=== PATIENT | male | born 2000 | race Caucasian/White ===

== ENCOUNTER 2019-11-12 21:17 | Inpatient (IN) | payer OTHER ==
--- NOTE | 2019-11-12 21:40 | ED ---
General Adult HPI - General Chief complaint: Psychiatric Symptoms Stated complaint: Mental Health Time Seen by Provider: 11/12/19 21:32 Source: patient Mode of arrival: ambulatory Limitations: no limitations - History of Present Illness Initial comments: Dictation was produced using [employer] dictation software. please excuse any grammatical, word or spelling errors. This patient was cared for during a federal and state declared state of emergency secondary to Covid 19 Chief Complaint: 19-year-old male presents with suicidal behavior History of Present Illness: 19-year-old male he presents today with suicidal behavior. Patient's been depressed for several weeks now. Patient cut himself superficially multiple occasions. Today he held a shotgun to his head however did not pull the trigger. Patient denies any homicidal ideation. Denies any visual or auditory hallucinations. The ROS documented in this emergency department record has been reviewed and confirmed by me. Those systems with pertinent positive or negative responses have been documented in the HPI. All other systems are other negative and/or noncontributory. PHYSICAL EXAM: General Impression: Alert and oriented x3, not in acute distress HEENT: Normocephalic atraumatic, extra-ocular movements intact, pupils equal and reactive to light bilaterally, mucous membranes moist. Cardiovascular: Heart regular rate and rhythm Chest: Able to complete full sentences, no retractions, no tachypnea Abdomen: abdomen soft, non-tender, non-distended, no organomegaly Musculoskeletal: Pulses present and equal in all extremities, no peripheral edema Motor: no focal deficits noted Neurological: CN II-XII grossly intact, no focal motor or sensory deficits noted Skin: Intact with no visualized rashes Psych: Anxious ED course: 19-year-old male presents with suicidal behavior. Signs upon arrival are within acceptable limits. Patient is a medical complaints. Physical examination is benign. Patient cleared For EPS evaluation. Patient evaluated by EPS. Patient be admitted to inpatient psychiatry. - Related Data Home Medications Medication Instructions Recorded Confirmed No Known Home Medications 11/12/19 11/12/19 Allergies Allergy/AdvReac Type Severity Reaction Status Date / Time No Known Allergies Allergy Verified 11/12/19 22:57 Review of Systems ROS Statement: Those systems with pertinent positive or pertinent negative responses have been documented in the HPI. ROS Other: All systems not noted in ROS Statement are negative. Past Medical History Past Medical History: No Reported History History of Any Multi-Drug Resistant Organisms: None Reported Past Surgical History: No Surgical Hx Reported Past Psychological History: Depression Smoking Status: Current every day smoker Past Alcohol Use History: Occasional Past Drug Use History: Marijuana General Exam Limitations: no limitations Course Vital Signs 11/12/19 21:17 Temperature 98.7 F Pulse Rate 96 Respiratory 16 Rate Blood Pressure 127/86 O2 Sat by Pulse 98 Oximetry Medical Decision Making - Lab Data Lab Results 11/12/19 Range/Units 21:40 Urine Color Zoe Urine Appearance Slightly Cloudy (Clear) Urine pH 6.0 (5.0-8.0) Ur Specific [place] 1.020 (1.001-1.035) Urine Protein Negative (Negative) Urine Glucose (UA) Negative (Negative) Urine Ketones Negative (Negative) Urine Blood Negative (Negative) Urine Nitrite Negative (Negative) Urine Bilirubin Negative (Negative) Urine Urobilinogen 4.0 (<2.0) mg/dL Ur Leukocyte Esterase Negative (Negative) Urine RBC <1 (0-5) /hpf Urine WBC 1 (0-5) /hpf Ur Squamous Epith Cells <1 (0-4) /hpf Urine Mucus Many H (None) /hpf Urine Opiates Screen Not Detected (NotDetected) Ur Oxycodone Screen Not Detected (NotDetected) Urine Methadone Screen Not Detected (NotDetected) Ur Propoxyphene Screen Not Detected (NotDetected) Ur Barbiturates Screen Not Detected (NotDetected) U Tricyclic Antidepress Not Detected (NotDetected) Ur Phencyclidine Scrn Not Detected (NotDetected) Ur Amphetamines Screen Not Detected (NotDetected) U Methamphetamines Scrn Not Detected (NotDetected) U Benzodiazepines Scrn Not Detected (NotDetected) Urine Cocaine Screen Not Detected (NotDetected) U Marijuana (THC) Screen Detected H (NotDetected) Disposition Clinical Impression: Suicidal behavior Disposition: ADMITTED IP TO THIS HOSP Condition: Fair Referrals: None,Stated [Primary Care Provider] - 1-2 days Decision Time: 23:00
[2019-11-12 22:32] LABS: Mucus,Urine Many /hpf; RBC,Urine <1 /hpf (0-5); Squamous Epithelial Cell,Urine <1 /hpf (0-4); WBC,Urine 1 /hpf (0-5)
[2019-11-12 22:35] LABS: Appearance,Urine Slightly Cloudy (Clear); Color,Urine Amber; Glucose,Urine (UA) Negative (Negative); Ketones,Urine Negative (Negative); Protein,Urine Negative (Negative)
[2019-11-12 22:36] LABS: Bilirubin,Urine Negative (Negative); Blood,Urine Negative (Negative); Leukocyte Esterase,Urine Negative (Negative); Nitrite,Urine Negative (Negative)
[2019-11-12 22:44] LABS: Amphetamine Screen,Urine Not Detected (NotDetected); Barbiturate Screen,Urine Not Detected (NotDetected); Benzodiazepines Screen,Urine Not Detected (NotDetected); Cocaine Screen,Urine Not Detected (NotDetected); Methadone Screen, Urine Not Detected (NotDetected); Opiate Screen,Urine Not Detected (NotDetected); Oxycodone Screen, Urine Not Detected (NotDetected); Phencyclidine Screen,Urine Not Detected (NotDetected); Tricyclic Antidepressant,Urine Not Detected (NotDetected); Urn Cannabinoid Scrn Detected (NotDetected)
[2019-11-12] MEDS ORDERED: MAG HYDROX/AL HYDROX/SIMETH 30 ML CUP PO PRN (23:17)
[2019-11-12] MEDS ORDERED: MAGNESIUM HYDROXIDE 2,400 MG/10 ML CUP PO PRN (23:17)
[2019-11-12] MEDS ORDERED: LORazepam 1 MG TAB PO PRN (23:17)
[2019-11-12] MEDS ORDERED: ZIPRASIDONE 20 MG VIAL IM PRN (23:17)
[2019-11-12] MEDS ORDERED: ACETAMINOPHEN TAB 325 MG TAB PO PRN (23:17)
[2019-11-12] MEDS ORDERED: LORazepam 2 MG/ML INJ IM PRN (23:19)
[2019-11-13] MEDS: NICOTINE 14MG/24HR PATCH TRANSDERM SCH (08:43)
[2019-11-13 09:00] LABS: Basophils % (A) 0 %; Eosinophils # (A) 0.1 k/uL (0-0.7); Eosinophils % (A) 2 %; HCT 48.5 % (39.0-53.0); HGB 16.4 gm/dL (13.0-17.5); Lymphocytes # (A) 3.1 k/uL (1.0-4.8); Lymphocytes % (A) 40 %; MCH 33.2 pg (25.0-35.0); MCHC 33.7 g/dL (31.0-37.0); MCV 98.4 fL (80.0-100.0); Mean Platelet Volume 6.8; Monocytes # (A) 0.4 k/uL (0-1.0); Monocytes % (A) 5 %; Neutrophils # (A) 3.8 k/uL (1.3-7.7); Neutrophils % (A) 50 %; Platelet Count 325 k/uL (150-450); RBC 4.92 m/uL (4.30-5.90); RDW 12.5 % (11.5-15.5); WBC 7.6 k/uL (4.0-11.0)
[2019-11-13 09:11] LABS: ALT 13 U/L (4-49); AST 23 U/L (17-59); African American GFR (CKD) >90 (>60 ml/min/1.73 sqM); Albumin 4.8 g/dL (3.5-5.0); Alkaline Phosphatase 68 U/L (38-126); Anion Gap 8 mmol/L; Blood Urea Nitrogen 12 mg/dL (9-20); Calcium 9.9 mg/dL (8.4-10.2); Carbon Dioxide 30 mmol/L (22-30); Chloride 102 mmol/L (98-107); Cholesterol 141 mg/dL (<200); Glucose 101 mg/dL (74-99); HDL Cholesterol 53 mg/dL (40-60); LDL Cholesterol,Calculated 73 mg/dL (0-99); Non-African American GFR(CKD) >90 (>60 ml/min/1.73 sqM); Potassium 5.1 mmol/L (3.5-5.1); Sodium 140 mmol/L (137-145); Total Bilirubin 3.1 mg/dL (0.2-1.3); Total Protein 7.5 g/dL (6.3-8.2); Triglycerides 74 mg/dL (<150)
--- NOTE | 2019-11-13 11:13 | P.HP ---
Psychiatric H&P - . History & Physical: Allergies Allergy/AdvReac Type Severity Reaction Status Date / Time No Known Allergies Allergy Verified 11/12/19 22:57 Vital Signs Temp 97.9 F 11/13/19 04:48 Pulse 58 L 11/13/19 04:48 Resp 16 11/13/19 04:48 BP 118/73 11/13/19 04:48 Pulse Ox 98 11/12/19 23:53 Intake & Output 11/12/19 11/13/19 11/13/19 18:59 06:59 18:59 Weight 54.839 kg Laboratory Last Values WBC 7.6 k/uL (4.0-11.0) 11/13/19 08:36 RBC 4.92 m/uL (4.30-5.90) 11/13/19 08:36 Hgb 16.4 gm/dL (13.0-17.5) 11/13/19 08:36 Hct 48.5 % (39.0-53.0) 11/13/19 08:36 MCV 98.4 fL (80.0-100.0) 11/13/19 08:36 MCH 33.2 pg (25.0-35.0) 11/13/19 08:36 MCHC 33.7 g/dL (31.0-37.0) 11/13/19 08:36 RDW 12.5 % (11.5-15.5) 11/13/19 08:36 Plt Count 325 k/uL (150-450) 11/13/19 08:36 Neutrophils % 50 % 11/13/19 08:36 Lymphocytes % 40 % 11/13/19 08:36 Monocytes % 5 % 11/13/19 08:36 Eosinophils % 2 % 11/13/19 08:36 Basophils % 0 % 11/13/19 08:36 Neutrophils # 3.8 k/uL (1.3-7.7) 11/13/19 08:36 Lymphocytes # 3.1 k/uL (1.0-4.8) 11/13/19 08:36 Monocytes # 0.4 k/uL (0-1.0) 11/13/19 08:36 Eosinophils # 0.1 k/uL (0-0.7) 11/13/19 08:36 Basophils # 0.0 k/uL (0-0.2) 11/13/19 08:36 Sodium 140 mmol/L (137-145) 11/13/19 08:36 Potassium 5.1 mmol/L (3.5-5.1) 11/13/19 08:36 Chloride 102 mmol/L (98-107) 11/13/19 08:36 Carbon Dioxide 30 mmol/L (22-30) 11/13/19 08:36 Anion Gap 8 mmol/L 11/13/19 08:36 BUN 12 mg/dL (9-20) 11/13/19 08:36 Creatinine 0.86 mg/dL (0.66-1.25) 11/13/19 08:36 Est GFR (CKD-EPI)AfAm >90 (>60 ml/min/1.73 sqM) 11/13/19 08:36 Est GFR (CKD-EPI)NonAf >90 (>60 ml/min/1.73 sqM) 11/13/19 08:36 Glucose 101 mg/dL (74-99) H 11/13/19 08:36 Calcium 9.9 mg/dL (8.4-10.2) 11/13/19 08:36 Total Bilirubin 3.1 mg/dL (0.2-1.3) H 11/13/19 08:36 AST 23 U/L (17-59) 11/13/19 08:36 ALT 13 U/L (4-49) 11/13/19 08:36 Alkaline Phosphatase 68 U/L (38-126) 11/13/19 08:36 Total Protein 7.5 g/dL (6.3-8.2) 11/13/19 08:36 Albumin 4.8 g/dL (3.5-5.0) 11/13/19 08:36 Triglycerides 74 mg/dL (<150) 11/13/19 08:36 Cholesterol 141 mg/dL (<200) 11/13/19 08:36 LDL Cholesterol, Calc 73 mg/dL (0-99) 11/13/19 08:36 HDL Cholesterol 53 mg/dL (40-60) 11/13/19 08:36 TSH 3.160 mIU/L (0.465-4.680) 11/13/19 08:36 Urine Color Zoe 11/12/19 21:40 Urine Appearance Slightly Cloudy (Clear) 11/12/19 21:40 Urine pH 6.0 (5.0-8.0) 11/12/19 21:40 Ur Specific [place] 1.020 (1.001-1.035) 11/12/19 21:40 Urine Protein Negative (Negative) 11/12/19 21:40 Urine Glucose (UA) Negative (Negative) 11/12/19 21:40 Urine Ketones Negative (Negative) 11/12/19 21:40 Urine Blood Negative (Negative) 11/12/19 21:40 Urine Nitrite Negative (Negative) 11/12/19 21:40 Urine Bilirubin Negative (Negative) 11/12/19 21:40 Urine Urobilinogen 4.0 mg/dL (<2.0) 11/12/19 21:40 Ur Leukocyte Esterase Negative (Negative) 11/12/19 21:40 Urine RBC <1 /hpf (0-5) 11/12/19 21:40 Urine WBC 1 /hpf (0-5) 11/12/19 21:40 Ur Squamous Epith Cells <1 /hpf (0-4) 11/12/19 21:40 Urine Mucus Many /hpf (None) H 11/12/19 21:40 Urine Opiates Screen Not Detected (NotDetected) 11/12/19 21:40 Ur Oxycodone Screen Not Detected (NotDetected) 11/12/19 21:40 Urine Methadone Screen Not Detected (NotDetected) 11/12/19 21:40 Ur Propoxyphene Screen Not Detected (NotDetected) 11/12/19 21:40 Ur Barbiturates Screen Not Detected (NotDetected) 11/12/19 21:40 U Tricyclic Antidepress Not Detected (NotDetected) 11/12/19 21:40 Ur Phencyclidine Scrn Not Detected (NotDetected) 11/12/19 21:40 Ur Amphetamines Screen Not Detected (NotDetected) 11/12/19 21:40 U Methamphetamines Scrn Not Detected (NotDetected) 11/12/19 21:40 U Benzodiazepines Scrn Not Detected (NotDetected) 11/12/19 21:40 Urine Cocaine Screen Not Detected (NotDetected) 11/12/19 21:40 U Marijuana (THC) Screen Detected (NotDetected) H 11/12/19 21:40 11/13/19 11:05 IDENTIFYING DATA: This patient is a 19-year-old single male who was admitted to the mental health unit through the emergency room after he attempted suicide with a shotgun. HPI: The patient states that yesterday afternoon when he was home alone he went to the backyard shed with a loaded shotgun placed into his head and was going to pull the trigger. He states that he was just about to pull the trigger when his uncle came home and the patient aborted the attempt. He states that he has struggled with depression for years and it seems to have been a lot worse over the last several months. A very close high school friend committed suicide via gunshot wound approximately in July. The patient states that he thinks about his friend every day and he wondered if he should do the same thing. He reports that his mood is depressed he has low energy low motivation sleep has been poor appetite is decreased he states he did not eat this morning. He reports feeling hopeless and helpless. He reports no homicidal thoughts she reports no auditory or visual hallucinations or any specific delusions. He endorses no episodes of hypomania or aleah. He states that he is having some symptoms of anxiety intermittently but not to the extent of having panic attacks. Anxiety is not excessively present on most days. There are firearms at his place of residence but he believes his family has secured them. PAST PSYCHIATRIC HISTORY: This is the patient's second inpatient psychiatric hospitalization. He was previously at [facility] when he was in the 12th grade. He states he has had 3 prior suicide attempts which were overdoses the last one was approximately 2-1/2 years ago. He states he was successfully treated with Zoloft in the past he had also used Wellbutrin but did not like the side effect that medication caused. He may have used trazodone for sleep but that caused excessive sedation in the morning hours. PMH: None reported ALLERGIES: NO KNOWN DRUG ALLERGIES MEDICATIONS: None CHEMICAL DEPENDENCY HISTORY: He reports he is not a regular drinker but the last 2 weeks he's been having 5-6 drinks a day, he smokes marijuana daily, he reports no use of any illicit drugs. He states that he has been clean for 2 years from Xanax and Vicodin he did go to inpatient chemical dependence treatment for use of those substances area FAMILY PSYCHIATRIC HISTORY: He had an uncle with major depressive disorder who was psychiatrically hospitalized several times, no suicides in the family FAMILY CHEMICAL DEPENDENCY HISTORY: Unknown SOCIAL HISTORY: The patient is 19 years old a single he has no children he resides with his mother sisters stepfather grandmother and grandfather. He states that he gets along with his family members well. The patient states that he has a high school diploma he did have special education assistance always through middle school and partway into his freshman year of high school. No history of service. 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 His family financially supports him at this time. For recreation he likes to [employer]. He reports no legal history he reports no abuse history. MENTAL STATUS EXAM: The patient is a shorter statured thin male appearing his stated age he has longer hair which is in a ponytail. He is dressed in hospital gowns he is pleasant cooperative he maintains a bland affect. He describes a depressed mood with hopelessness thinking he describes having low energy low motivation and intermittent anxiety. He states that if he wasn't admitted to the hospital yesterday he would kill himself. He reports no thoughts of harming others no homicidal ideation intent or plan. He is endorsing no auditory or visual hallucinations or any specific delusions. There is no observed evidence of psychosis. He does not appear hypomanic or manic. He demonstrates no tangential thinking loose associations or flight of ideas. Insight and judgment are limited. Cognitively he is oriented to person place and date he is able to name the days of the week backwards. He demonstrates no verbal or physical aggressiveness he demonstrates no involuntary repetitive movements. STRENGTHS/WEAKNESSES: Strengths: Housing, support from family, willingness to participate in treatment weaknesses: Lack of follow-through with outpatient care, cannabis use INTELLECTUAL FUNCTIONING: Average IMPRESSIONS: [] 1. 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 We reviewed his presenting symptoms and treatment options. We decided to initiate the Zoloft again for depressive and anxiety symptoms, we will use melatonin for sleep. We discussed potential benefits and side effects of both medications his questions were answered. He will be seen by internal medicine for routine history and physical exam, social work will meet with the patient to complete a psychosocial assessment and to begin discharge planning. We will involve his available support in treatment and discharge planning as he will allow. He is instructed to fully attending groups we will monitor him for safety. Vital signs reviewed, lab results reviewed.
[2019-11-13 14:20] VITALS: BMI 18.9
--- NOTE | 2019-11-13 16:48 | P.HPMEDMHU ---
History of Present Illness H&P Date: 11/13/19 Chief Complaint: Depresion Patient's 19-year-old male with history of prescription drug use disorder, and prior depression who is admitted to the mental health unit. We are asked to see him for medical H&P. Patient seen and examined. He denies any chest pain, shortness breath, nausea, vomiting, recent fever, cough, cold, fever, chills. He does report some soft stools intermittently he states they're more softened days he drinks more beer. He does not have any blood in his stool, mucus in his stool, abdominal pain, or difficulty with urination. He does report weight loss of 20 pounds in 1 year, he denies change in appetite, he does state he stopped working out and has lost significant amounts of muscle mass. Review of Systems Pertinent positives and negatives as discussed in HPI, a complete review of systems was performed and all other systems are negative. Past Medical History Past Medical History: No Reported History History of Any Multi-Drug Resistant Organisms: None Reported Past Surgical History: No Surgical Hx Reported Past Anesthesia/Blood Transfusion Reactions: No Reported Reaction Smoking Status: Current every day smoker Past Alcohol Use History: Daily Past Drug Use History: Marijuana, Opiates Additional History: 1 ppd, 5-6 beers or a pint daily, hx of prescription drug use 2 years ago- went to rehab, none since - Past Family History Father Family Medical History: Unable to Obtain Mother Family Medical History: No Reported History Medications and Allergies Home Medications Medication Instructions Recorded Confirmed Type No Known Home Medications 11/12/19 11/12/19 History Allergies Allergy/AdvReac Type Severity Reaction Status Date / Time No Known Allergies Allergy Verified 11/12/19 22:57 Physical Exam Osteopathic Statement: *. No significant issues noted on an osteopathic structural exam other than those noted in the History and Physical/Consult. Vitals: Vital Signs Temp Pulse Pulse Resp BP BP Pulse Ox 11/13/19 13:16 98.6 F 11/13/19 04:48 97.9 F 58 L 16 118/73 11/12/19 23:53 99.5 F 18 130/80 98 11/12/19 21:17 98.7 F 96 16 127/86 98 Intake and Output 06/22/20 06/23/20 06/23/20 22:59 06:59 14:59 Other: Weight 58.967 kg 54.839 kg 54.839 kg General: , no distress, appears at stated age, normal weight Derm: 3 small linear lacerations less than 1 cm on left wrist without drainage, warmth, or erythema, no unusual rashes/lesions no unusual ecchymoses, warm, dry Head: atraumatic, normocephalic, symmetric Eyes: EOMI, no lid lag, anicteric sclera, pupils equal round reactive to light ENT: Nose and ears atraumatic, no thrush, no pharyngeal erythema Neck: No thyromegaly, no cervical lymphadenopathy, trachea midline, supple Mouth: no lip lesion, mucus membranes moist Cardiovascular: S1S2 reg, no murmur, positive posterior tibial pulse bilateral, no edema, capillary refill less than 2 seconds Lungs: CTA bilateral, no rhonchi, no rales , no accessory muscle use Abdominal: soft, nontender to palpation, no guarding, no appreciable organomegaly, normal bowel sounds Ext: no gross muscle atrophy, muscle strength 5 out of 5 in all 4 extremities grossly, no contractures, Neuro: CN II-XI grossly intact, light touch intact all 4 extremities, finger to nose within normal limits, Psych: Alert, oriented, appropriate affect Cranial Nerve Examination - Cranial Nerves Cranial Nerve II- Optic: Intact Cranial Nerve III- Oculomotor: Intact Cranial Nerve IV- Trochlear: Intact Cranial Nerve V- Trigeminal: Intact Cranial Nerve - Abducens: Intact Cranial Nerve VII- Facial: Intact Cranial Nerve VIII- Auditory: Intact Cranial Nerve IX- Glossopharyngeal: Intact Cranial Nerve X- Vagus: Intact Cranial Nerve XI- Accessory: Intact Cranial Nerve XII- Hypoglossal: Intact Results CBC & Chem 7: 11/13/19 08:36 11/13/19 08:36 Labs: Abnormal Lab Results - Last 24 Hours (Table) 11/12/19 11/13/19 Range/Units 21:40 08:36 Glucose 101 H (74-99) mg/dL Total Bilirubin 3.1 H (0.2-1.3) mg/dL Urine Mucus Many H (None) /hpf U Marijuana (THC) Screen Detected H (NotDetected) Thrombosis Risk Factor Assmnt - Choose All That Apply Any of the Below Risk Factors Present?: No Other Risk Factors: No Other congenital or acquired thrombophilia - If yes, enter type in comment: No Thrombosis Risk Factor Assessment Level: Very Low Risk Assessment and Plan Assessment: Left wrist laceration X 3 -Patient to monitor for warmth or drainage alert nursing if this occurs -No need to cover for medications at this point in time Tobacco abuse -Cessation -Nicotine replacement Depression -Your psych management Thank you for allowing us to participate in the care of this pleasant patient. Do not hesitate to contact us with questions. Someone can be reached from the [facility] hospitalist group all hours of the day at [phone] or via [employer].
[2019-11-13 18:47] LABS: Hemoglobin A1C 5.2 % (4.0-6.0)
[2019-11-13] MEDS ORDERED: SERTRALINE 50 MG TAB PO SCH (21:00)
[2019-11-13] MEDS: MELATONIN 5 MG TABLET PO SCH (22:21)
[2019-11-14] MEDS: NICOTINE 14MG/24HR PATCH TRANSDERM SCH (08:54)
--- NOTE | 2019-11-14 11:11 | P.PN ---
Progress Note - Text Interval history: The patient is found in group he follows me to an interview room. He indicates he still feels sad he still has hopeless thoughts and still has suicidal ideation. He states that he is making himself go to group. We reviewed his psychotropic medication his questions were answered. He states he would prefer to take the Zoloft during the day rather than at night. On a good note he reports he slept throughout the night and feels rested. Appetite stable. He reports he participated in a phone call with several family members which was supportive. Mental status exam: The patient is a thin male appearing his stated age she is dressed in his own clothing. Eye contact is appropriate speech is fluent and spontaneous. He indicates continuing to feel sad hopeless he states that he had suicidal thoughts as recently as this morning. He reports that he is scared by those thoughts but wants to do whatever he can to feel better. He indicates he can keep himself safe here in the hospital he is reporting no homicidal ideation. He reports no auditory or visual hallucinations or any specific delusions or is no evidence of psychosis. He does not appear hypomanic or manic. He demonstrates no verbal or physical aggressiveness he demonstrates no involuntary repetitive movements. Plan: The patient will continue on the Zoloft we will move the dosing to morning continue the melatonin. He is encouraged to continue participating in the milieu. We will monitor him for safety. He remains in acute safety risk until further clinically stabilized. He requires continued psychiatric hospitalization. Vital signs reviewed.
[2019-11-14] MEDS: SERTRALINE 50 MG TAB PO SCH (11:56)
[2019-11-14] MEDS: MELATONIN 5 MG TABLET PO SCH (22:05)
[2019-11-15] MEDS: NICOTINE 14MG/24HR PATCH TRANSDERM SCH (08:32)
[2019-11-15] MEDS: SERTRALINE 50 MG TAB PO SCH (08:33)
--- NOTE | 2019-11-15 08:51 | P.PN ---
Progress Note - Text Interval history: The patient is found in the hallway he follows me to an interview room. He indicates he had trouble sleeping last night and felt that he was up for hours. Staff report he slept 5 hours. Appetite reportedly stable. He indicates he has been attending groups. He states his mother visited last evening and that was supportive. He reports that there are deathly times during the day when his mood is better and he is still having times where he feels hopeless and down. He indicates that he wants things to be good when he goes home but is concerned about experiencing waves of depression again. We reviewed his psychotropic medication as questions were answered. Mental status exam: The patient is alert he is dressed in his own clothing hygiene grooming adequate eye contact is appropriate he maintains a constricted to bland affect. He reports his mood is better at times but he still feels depressed he still reports intermittent hopeless thoughts and intermittently will have suicidal thoughts although he is trying to distract himself from those thoughts. No homicidal ideation intent or plan. He reports no auditory or visual hallucinations or any specific delusions. There is no observed evidence of psychosis. He demonstrates no tangential thinking loose associations or flight of ideas. He does not appear hypomanic or manic. He demonstrates no verbal or physical aggressiveness he demonstrates no involuntary repetitive movements. Insight and judgment improving but limited. He remains oriented to person place and date. Plan: The patient reports some improvement in mood but is still expressing hopeless thoughts with some intermittent suicidal ideation. He has been fully participating in the milieu and providing an adequate effort. Vital signs reviewed. He requires continued psychiatric hospitalization due to acute safety risk. Again the patient was admitted after he contemplated shooting himself with a loaded shotgun. We will involve his mother in treatment and discharge planning during the hospitalization.
[2019-11-15] MEDS: MELATONIN 5 MG TABLET PO SCH (20:07)
[2019-11-16] MEDS: NICOTINE 14MG/24HR PATCH TRANSDERM SCH (09:10)
[2019-11-16] MEDS: SERTRALINE 50 MG TAB PO SCH (09:10)
--- NOTE | 2019-11-16 09:35 | P.PN ---
Progress Note - Text Interval history: The patient is found in the hallway he follows me to an interview room. He indicates that his mood is improving. He continues to have supportive conversations with family. We discussed titrating the Zoloft to 100 mg starting tomorrow and he is agreeable. He has been attending groups appetite stable. We discussed some of his short-term goals upon in the hospital and longer term goals over the next year. No behavioral disturbance is reported by staff. Mental status exam: The patient is an alert thin male appearing his stated age. He is pleasant cooperative. Affect is constricted. He reports that his moods improving he feels safe in the hospital. He is reporting no thoughts of harming others. There is no report or evidence of auditory or visual hallucinations or any specific delusions. He demonstrates no tangential thinking loose associations or flight of ideas he does not appear hypomanic or manic. Insight and judgment are improving. He is oriented to person place and date. He feels that his hopelessness thinking is starting to resolve today he is reporting no acute suicidal ideation. Plan: The patient will continue on his current psychotropic medication. We will titrate the Zoloft to 100 mg daily. We will monitor him for safety if he continues to demonstrate clinical improvement he may be appropriate for discharge as soon as Tuesday or Tuesday. Vital signs reviewed. He is encouraged to continue participating in the milieu.
[2019-11-16] MEDS: MELATONIN 5 MG TABLET PO SCH (21:37)
[2019-11-17] MEDS: SERTRALINE 100 MG TAB PO SCH (08:54)
[2019-11-17] MEDS: NICOTINE 14MG/24HR PATCH TRANSDERM SCH (08:54)
--- NOTE | 2019-11-17 10:12 | P.PN ---
Progress Note - Text Interval history: The patient is found in group he follows me to an interview room. He indicates his mood is improving. He reports difficulty sleeping last night due to disturbances on the mental health unit. He has no questions or concerns regarding his psychotropic medication. Appetite is stable. He is attending groups. He had a good conversation with his mother the phone yesterday he anticipates she will visit this evening. Mental status exam: The patient is a thin male appearing his stated age she presents with adequate hygiene grooming eye contact is appropriate. Speech is fluent spontaneous nonpressured. He reports his mood is improving he is reporting no acute hopelessness thinking no suicidal ideation intent or plan today or homicidal ideation intent or plan. He demonstrates no evidence of psychosis he is reporting no auditory or visual hallucinations or specific delusions. He demonstrates no verbal or physical aggressiveness he demonstrates no involuntary repetitive movements. Insight and judgment improving. No evidence of any hypomanic or manic symptoms. Plan: The patient will continue on his current psychotropic medications. He is currently stabilizing. I anticipate he will be discharged on Tuesday if sufficiently stable. Vital signs reviewed. He is encouraged to continue participating in the milieu.
[2019-11-17] MEDS: MELATONIN 5 MG TABLET PO SCH (21:46)
[2019-11-18] MEDS: NICOTINE 14MG/24HR PATCH TRANSDERM SCH (08:40)
[2019-11-18] MEDS: SERTRALINE 100 MG TAB PO SCH (08:40)
--- NOTE | 2019-11-18 10:46 | P.PN ---
Progress Note - Text Interval history: The patient is found in the hallway he follows me to an interview room. He indicates his mood is good. He states he had a good visit with his mother. The patient spontaneously describes future oriented thinking. He feels that the medication has been helpful already. He is reporting no side effect. Appetite and sleep are stable. He is participating in groups. Mental status exam: The patient is a thin male appearing his stated age hygiene and grooming are good. Eye contact is appropriate speech is fluent spontaneous nonpressured. He reports no hopelessness thinking no suicidal ideation intent or plan is reporting no homicidal ideation intent or plan. He endorses no auditory or visual hallucinations or any specific delusions and there is no observed evidence of psychosis. He does not appear hypomanic or manic he demonstrates no tangential thinking loose associations or flight of ideas. Affect is more appropriately expressive. He demonstrates no verbal or physical aggressiveness. Plan: The patient is currently stabilizing I expect he'll be appropriate for discharge tomorrow. We will continue the Zoloft as written. Vital signs reviewed.
[2019-11-18] MEDS: MELATONIN 5 MG TABLET PO SCH (20:53)
[2019-11-19 06:40] VITALS: BP 133/79; PULSE 73; RESP 16; TEMP 97.9
[2019-11-19] MEDS: NICOTINE 14MG/24HR PATCH TRANSDERM SCH (08:10)
[2019-11-19] MEDS: SERTRALINE 100 MG TAB PO SCH (08:11)
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
== END 2019-11-19 13:10 | disposition home or self-care (01) | DRG 885 ==
LOC: EC 21:17 → 3MHU 23:11
PROVIDERS: ADMIT Psychiatry & Neurology Psychiatry; ATTEND Psychiatry & Neurology Psychiatry
DX: F33.2 Major depressive disorder, recurrent severe without psychotic features (principal); R45.851 Suicidal ideations; F12.20 Cannabis dependence, uncomplicated; F11.21 Opioid dependence, in remission; F13.21 Sedative, hypnotic or anxiolytic dependence, in remission; F41.9 Anxiety disorder, unspecified; Z91.5 Personal history of self-harm; Z81.8 Family history of other mental and behavioral disorders
CPT/HCPCS: 80053; 80061; 80306; 81001; 82075; 83036; 84443; 85025; 99285